=== PATIENT | female | born 2000 | race Native Hawaiian/Other Pacific Islander ===

== ENCOUNTER 2020-09-19 16:43 | Emergency (ER) | payer SELFPAY ==
[2020-09-19 16:43] VITALS: BP 128/75; PULSE 108; RESP 16; TEMP 36.9; O2SAT 98; BMI 32.8
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
[2020-09-19 16:53] VITALS: BP 128/75; PULSE 104; RESP 16; O2SAT 97
[2020-09-19 17:05] LABS: Basophils # 0.1 10^3/uL (0.0-0.1); Basophils % 0.5 %; Eosinophils # 0.2 10^3/uL (0.0-0.8); Eosinophils % 0.7 %; Hematocrit 38.7 % (37.0-47.0); Hemoglobin 12.2 g/dL (11.5-15.3); Lymphocytes # 6.1 10^3/uL (1.5-6.5); Lymphocytes % 21.9 %; Mean Corpuscular HGB Conc 31.5 g/dL (30.0-36.0); Mean Corpuscular Hemoglobin 24.8 pg (28.0-34.0); Mean Corpuscular Volume 78.7 fL (81-99); Mean Platelet Volume 9.9 fL (7.4-10.4); Monocytes # 1.8 10^3/uL (0.2-0.9); Monocytes % 6.3 %; Neutrophils # 19.25 10^3/uL (1.8-8.0); Neutrophils % 69.7 %; Nucleated Red Blood Cells % 0 %; Platelet Count 498 10^3/cmm (130-400); Red Blood Count 4.92 10^6/uL (4.1-5.3); White Blood Count 27.6 10^3/uL (4.5-13.0)
[2020-09-19] MEDS: iohexol 300 mg/mL 100 mL Btl IV (17:09)
[2020-09-19 17:28] LABS: Alanine Aminotransferase 28 U/L (0-33); Albumin Level 4.2 g/dL (3.5-5.2); Alkaline Phosphatase 67 IU/L (35-105); Blood Urea Nitrogen 12 mg/dL (6-20); Calcium 8.8 mg/dL (8.5-10.5); Carbon Dioxide 26 mmol/L (22-29); Chloride 101 mmol/L (98-107); Globulin 2.9 g/dL (1.3-4.6); Glomerular Filtration Rate 157.3 mL/min (90-130); Glucose 118 mg/dL (65-115); Osmolality Calculated 289 mOsm/kg (285-295); Sodium 139 mmol/L (136-145); Total Bilirubin 0.2 mg/dL (0.15-1.2); Total Protein 7.1 g/dL (6.6-8.7)
[2020-09-19 18:04] LABS: Slide Review Slide Review Perform
[2020-09-19 18:07] LABS: Anion Gap 15.5 (5-19)
[2020-09-19 18:08] LABS: Aspartate Amino Transferase 27 U/L (0-32); Potassium 3.5 mmol/L (3.5-5.1)
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
[2020-09-19 20:34] VITALS: BP 100/80; PULSE 112; RESP 18; O2SAT 94
== END 2020-09-19 20:10 | disposition home or self-care (01) ==
PROVIDERS: Family Medicine; Emergency Provider Emergency Medicine; PCP Pediatrics Adolescent Medicine
DX: S09.8XXA Other specified injuries of head, initial encounter (principal); M25.572 Pain in left ankle and joints of left foot; W22.09XA Striking against other stationary object, initial encounter; Y93.23 Activity, snow (alpine) (downhill) skiing, snowboarding, sledding, tobogganing and snow tubing
CPT/HCPCS: 70450; 71260; 72125; 73552; 73600; 74177; 80053; 85025; 99283; E0114; Q9967

== ENCOUNTER → 2025-07-14 09:31 | Outpatient (BNVA) | payer OTHER, SELFPAY | PROVIDERS: PCP Pediatrics Adolescent Medicine; Visit Provider Obstetrics & Gynecology | DX: Z31.69 Encounter for other general counseling and advice on procreation (principal); Z12.4 Encounter for screening for malignant neoplasm of cervix | CPT/HCPCS: 80053; 81025; 84146; 84315; 84443; 85025; 88175 ==